=== PATIENT | female | born 1960 | race Caucasian/White ===

== ENCOUNTER 2019-03-20 14:02 | Emergency (ER) | payer BC, MEDICARE ==
--- NOTE | 2019-03-20 14:17 | Emergency Department Record ---
History of Present Illness - General Chief Complaint: Chest Pain Stated Complaint: CHEST PAIN Time Seen by Provider: 03/20/19 14:13 Source: Patient, Family Mode of Arrival: Ambulatory Limitations: No limitations - History of Present Illness Initial Comments: The patient is here due to a 4 month hx of intermittent chest pains. She states the pain is an aching sharp intermittent pain that occurs with any movement, bending twisting and coughing. She has had mild HATTIE at times but no nausea or sweating. The patient has been to the ER multiple times for this over the last 4 months to [facility] but she states they keep sending her home with no diagnosis. She has no hx of fever, chills, MOON, CP with exertion or any Hx of coronary artery dz. The patient does state she has a hx of a racing heart and takes Diltiazam for that. She also is complaining of a worsening of her chronic migraine DIALLO and states she usually receives Dilaudid for that. The patient also has a hx of chronic back pain and has had multiple back surgeries along with spinal stimulators placed. MD Complaint: Chest pain Onset/Timin -: Month(s) - Related Data Home Medications Medication Instructions Recorded Confirmed Last Taken Clonazepam 0.25 mg PO QHS 03/20/19 03/20/19 03/19/19 Diltiazem HCl [Cardizem] 30 mg PO Q8H 03/20/19 03/20/19 03/20/19 Gabapentin [Neurontin] 600 mg PO TID 03/20/19 03/20/19 03/20/19 Promethazine HCl [Phenergan] 25 mg PO ASDIR 03/20/19 03/20/19 Unknown Trazodone HCl 100 mg PO QHS 03/20/19 03/20/19 03/19/19 Allergies Allergy/AdvReac Type Severity Reaction Status Date / Time acetaminophen Allergy Unknown ITCHING Verified 03/20/19 14:57 carisoprodol Allergy Unknown ITCHING Verified 03/20/19 14:57 ibuprofen Allergy Unknown ABDOMINAL Verified 03/20/19 14:57 PAIN meperidine Allergy Unknown ITCHING Verified 03/20/19 14:57 naproxen Allergy Unknown ABDOMINAL Verified 03/20/19 14:57 PAIN prochlorperazine Allergy Unknown ITCHING Verified 03/20/19 14:57 propoxyphene Allergy Unknown ABDOMINAL Verified 03/20/19 14:57 PAIN tramadol Allergy Unknown ABDOMINAL Verified 03/20/19 14:57 PAIN zolpidem Allergy Unknown ITCHING Verified 03/20/19 14:57 Review of Systems Constitutional: Denies: Chills, Fever Eyes: Denies: Eye discharge ENT: Denies: Congestion Respiratory: Denies: Cough, Dyspnea Cardiovascular: Reports: Chest pain. Denies: Arrhythmia, Dyspnea on exertion Endocrine: Reports: Fatigue Gastrointestinal: Denies: Nausea Genitourinary: Denies: Dysuria Musculoskeletal: Reports: Back pain (Chronic.). Denies: Arthralgia Skin: Denies: Bruising Past Medical History - SOCIAL HISTORY Smoking Status: Current every day smoker Alcohol Use: None - RESPIRATORY Hx Respiratory Disorders: No - CARDIOVASCULAR Hx Cardio Disorders: Yes Hx Palpitations: Yes - NEURO Hx Neuro Disorders: Yes Hx Headaches: Yes Hx of Migraines: Yes - MUSCULOSKELETAL Hx Musculoskeletal Disorders: Yes Hx Back Injury: Yes (Chronic back pain.) Physical Exam - General General Appearance: Alert, Oriented x3, Cooperative, No acute distress - Head Head exam: Atraumatic, Normocephalic, Normal inspection - Eye Eye exam: Normal appearance, PERRL - ENT Throat exam: Normal inspection. negative: Tonsillar erythema, Tonsillar exudate - Neck Neck exam: Normal inspection, Full ROM. negative: Meningismus, Tenderness - Respiratory Respiratory exam: Normal lung sounds bilaterally, Chest wall tenderness (the CP is 100% reproducible to palpation over the anterior chest wall.). negative: Respiratory distress - Cardiovascular Cardiovascular Exam: Regular rate, Normal rhythm, Normal heart sounds. negative: Diastolic murmur, Systolic murmur - GI/Abdominal GI/Abdominal exam: Soft, Normal bowel sounds. negative: Tenderness - Extremities Extremities exam: Normal inspection, Full ROM, Normal capillary refill. negative: Tenderness - Neurological Neurological exam: Alert, Altered, Normal gait, Oriented X3. negative: Abnormal gait, Motor sensory deficit - Psychiatric Psychiatric exam: negative: Depressed - Skin Skin exam: negative: Rash Course - Reevaluation(s) Reevaluation #1: The patient is doing better with much less CP and DIALLO. She is mildly sleepy at this time due to taking extra [place] and Neurontin which she did on her own and without our direction. Her CP is still 100% reproducible to palpation. We will check a 2nd Trop and discharge if neg due to her Heart Score being < 3. 03/20/19 16:01 Reevaluation #2: The patient is doing better at this time. She states she is pain free. Her blood pressure is running a little low but she states that is normal for her. The patient has never been here to [facility] so we have no old records to compare. Her chest pain has resolved and she is up ambulating normally with no ataxia. The patient is still a little sleepy from her oral medicines but is answering all questions appropriately. Again her HEART Score is 2 and her initial and 3 hour Trop are neg. That along with the patient's pain being 100% reproducible makes me believe the pain is very unlikely to be cardiac in origin. I also did instruct the patient to see her PCP due to her mild anemia. 03/20/19 17:33 Medical Decision Making - Data Complexity MDM Data: Labs Ordered and/or Reviewed, X-Ray Ordered and/or Reviewed, EKG Ordered and/or Reviewed - Lab Data Result diagrams: 03/20/19 14:15 03/20/19 14:15 - EKG Data -: EKG Interpreted by Me EKG: No Acute Changes, Normal EKG - Radiology Data Radiology results: Report reviewed (CXR: Neg for acute changes.) Disposition Disposition: Discharge Clinical Impression: Chest wall pain Disposition: Home, Self-Care Condition: (2) Stable Instructions: Chest Wall Pain (ED) Additional Instructions: Please take your home medicines as normally directed and please see your family doctor tomorrow for recheck and to obtain a Cardiology referral if needed. Return to the ER for any worsening symptoms. Forms: Patient Portal Access Time of Disposition: 17:37 Quality - Quality Measures Quality Measures: N/A - Blood Pressure Screening View Details: Yes Does Patient Have Any of the Following: No Blood Pressure Classification: Normal BP Reading Systolic Measurement: 93 Diastolic Measurement: 56 Screening for High Blood Pressure: < Normal BP, F/U Not Required > [G8783]
[2019-03-20] MEDS ORDERED: METOCLOPRAMIDE HCL 10 MG/2 ML VIAL IVP ONE (14:34)
[2019-03-20] MEDS ORDERED: DIPHENHYDRAMINE HCL 50 MG/ML VIAL IVP ONE (14:34)
[2019-03-20 14:40] LABS: ABSOLUTE NEUTROPHIL COUNT 3.34; BASO % 0.6 % (0-6); EOS % 2.9 % (0-6); GRAN % 63.9 % (47-80); HEMATOCRIT 30.8 % (35.0-47.0); HEMOGLOBIN 9.6 gm/dl (11.6-16.0); LYMPH % 25.5 % (16-45); MEAN CELL VOLUME 91.7 fl (81-97); MEAN CORPUSCULAR HGB CONC 31.2 g/dl (32-36); MEAN PLATELET VOLUME 10.2 fl (7.4-10.4); MONO % 7.1 % (0-9); PLATELET COUNT 160 K/uL (130-400); RED BLOOD COUNT 3.36 M/uL (3.80-5.40); RED CELL DISTRIBUTION WIDTH 14.9 % (11.5-14.5); WHITE BLOOD COUNT W/O DIFF 5.2 K/uL (4.2-12.2)
[2019-03-20 14:48] LABS: MEAN CORPUSCULAR HEMOGLOBIN 28.5 pg (27-33)
[2019-03-20 14:52] LABS: BLOOD UREA NITROGEN 22 mg/dL (6-20); EST GLOMERULAR FILTRATION RATE > 60 mL/min
[2019-03-20 14:53] LABS: TOTAL PROTEIN 6.3 g/dL (6.6-8.7)
[2019-03-20 14:55] LABS: GLUCOSE,RANDOM 90 mg/dL (74-109)
[2019-03-20 14:57] LABS: ALB/GLOB RATIO 2.2 (1.1-1.8); ALBUMIN 4.3 g/dL (4.0-5.0); ALT/SGPT 8 U/L (<33); AST/SGOT 15 U/L (10.0-35.0)
[2019-03-20 14:58] LABS: ALKALINE PHOSPHATASE 72 U/L (35-104)
[2019-03-20 17:25] LABS: CKMB 1.2 ng/mL (<3.77)
--- NOTE | 2019-03-21 19:00 | RADIOLOGY REPORT ---
EXAM: CHEST 2 VIEWS HISTORY: DIFFICULTY IN BREATHING. TECHNIQUE: Frontal and lateral views of the chest were performed. FINDINGS: Heart size is normal. The lungs are hyperinflated. No infiltrate or effusion. The osseous structures are normal. IMPRESSION: HYPERINFLATED LUNGS. NO ACUTE PROCESS. JOB NUMBER: [id number] MTDD
== END 2019-03-20 17:44 | disposition home or self-care (01) ==
LOC: ER 14:02
DX: R07.89 Other chest pain (principal); R51 Headache; F17.210 Nicotine dependence, cigarettes, uncomplicated
CPT/HCPCS: 71046; 80053; 82553; 84484; 85025; 93005; 93010; 96374; 96375; 99284; J1200; J2765

== ENCOUNTER 2019-08-19 14:37 | Emergency (ER) | payer BC, MEDICARE ==
--- NOTE | 2019-08-19 15:23 | Emergency Department Record ---
History of Present Illness - General Chief complaint: Extremity Problem Stated complaint: RT LEG GIVING OUT Time Seen by Provider: 08/19/19 14:59 Source: Patient, Family Mode of Arrival: Ambulatory Limitations: No limitations - History of Present Illness Initial comments: The patient is here due to worsening of her chronic back pain. She has had a long hx of similar pain for years. The patient has had spinal stimulators placed but not turned on. Per the patient the R sided stimulator has been a problem chronically and she is scheduled to get it out. Now the pain in the R lower back is worse and intermittently traveling down the R leg. She denies any new leg numbness or weakness but states the R leg has given out today. The patient also has had chronic incontinence and that is no worse. MD Complaint: Other Onset/Timin -: Days(s) Location: Right Severity scale (1-10): 10 Quality: Aching - Related Data Home Medications Medication Instructions Recorded Confirmed Last Taken Hydrocodone/APAP 7.5/325Mg [[place] 1 each PO Q6H 08/19/19 08/19/19 1 Day Ago 7.5MG/325Mg] ~08/18/19 Topiramate [Topamax] 50 mg PO DAILY 08/19/19 08/19/19 1 Day Ago ~08/18/19 Venlafaxine HCl [Effexor Xr] 150 mg PO DAILY 08/19/19 08/19/19 1 Day Ago ~08/18/19 Allergies Allergy/AdvReac Type Severity Reaction Status Date / Time acetaminophen Allergy Unknown ITCHING Verified 03/20/19 14:57 carisoprodol Allergy Unknown ITCHING Verified 03/20/19 14:57 ibuprofen Allergy Unknown ABDOMINAL Verified 03/20/19 14:57 PAIN meperidine Allergy Unknown ITCHING Verified 03/20/19 14:57 naproxen Allergy Unknown ABDOMINAL Verified 03/20/19 14:57 PAIN prochlorperazine Allergy Unknown ITCHING Verified 03/20/19 14:57 propoxyphene Allergy Unknown ABDOMINAL Verified 03/20/19 14:57 PAIN tramadol Allergy Unknown ABDOMINAL Verified 03/20/19 14:57 PAIN zolpidem Allergy Unknown ITCHING Verified 03/20/19 14:57 Travel Screening - Travel/Exposure Within Last 30 Days Have you traveled within the last 30 days?: No - Travel/Exposure Within Last Year Have you traveled outside the [place] in the last year?: No - Additonal Travel Details Have you been exposed to anyone with a communicable illness?: No - Travel Symptoms Symptom Screening: None Review of Systems Constitutional: Denies: Chills, Fever Eyes: Denies: Eye discharge ENT: Denies: Congestion Respiratory: Denies: Cough, Dyspnea Past Medical History - SOCIAL HISTORY Smoking Status: Current every day smoker Alcohol Use: None Drug Use: None - RESPIRATORY Hx Respiratory Disorders: No - CARDIOVASCULAR Hx Cardio Disorders: Yes Hx Palpitations: Yes - NEURO Hx Neuro Disorders: Yes Hx Headaches: Yes Hx of Migraines: Yes - GI Hx GI Disorders: No - Hx Genitourinary Disorders: No - ENDOCRINE Hx Endocrine Disorders: No - MUSCULOSKELETAL Hx Musculoskeletal Disorders: Yes Hx Back Injury: Yes (Chronic back pain.) - PSYCH Hx Psych Problems: No - HEMATOLOGY/ONCOLOGY Hx Hematology/Oncology Disorders: No Family Medical History Any Significant Family History?: Yes Hx Heart Disease: Mother Physical Exam - General General Appearance: Alert, Oriented x3, Cooperative, No acute distress - Head Head exam: Atraumatic, Normocephalic - Eye Eye exam: Normal appearance - ENT Throat exam: Normal inspection. negative: Tonsillar erythema, Tonsillar exudate - Neck Neck exam: Normal inspection, Full ROM. negative: Tenderness - Respiratory Respiratory exam: Normal lung sounds bilaterally. negative: Respiratory distress - Cardiovascular Cardiovascular Exam: Regular rate, Normal rhythm, Normal heart sounds - GI/Abdominal GI/Abdominal exam: Soft, Normal bowel sounds. negative: Tenderness - Extremities Extremities exam: Normal inspection, Normal capillary refill, Other (Positive SLR bilaterally to 70 degrees.). negative: Tenderness - Back Back exam: Reports: Other (There is slight swelling over the R spinal stimulator over the R SI joint. ). Denies: Normal inspection, Vertebral tenderness - Neurological Neurological exam: Alert, Motor sensory deficit, Normal gait, Oriented X3, Reflexes normal (The patella and achilles reflexes are 2+ and equal bilaterally. ). negative: Abnormal gait, Altered Course Vital Signs 08/19/19 14:50 Temperature 98.1 F Pulse Rate 84 Respiratory 16 Rate Blood Pressure 111/62 Pulse Ox 99 - Reevaluation(s) Reevaluation #1: I did politely explain to the patient that due to her chronic pain issue that I would be glad to give her non-narcotic pain medicines. I also did recommend a post void residual check to assess spinal nerve integrity. The patient became upset due to not receiving any narcotic pain medicines and walked out of the ED with no limping or leg weakness. 08/19/19 15:22 Disposition Disposition: Discharge Clinical Impression: Chronic back pain Qualifiers: Back pain laterality: unspecified Sciatica presence: unspecified whether sciatica present Disposition: Against Medical Advice Time of Disposition: 15:23 Quality - Quality Measures Quality Measures: N/A - Blood Pressure Screening View Details: Yes Does Patient Have Any of the Following: No Blood Pressure Classification: Normal BP Reading Systolic Measurement: 111 Diastolic Measurement: 62 Screening for High Blood Pressure: < Normal BP, F/U Not Required > [G8783]
== END 2019-08-19 15:20 | disposition left against medical advice (07) ==
LOC: ER 14:37
DX: M54.5 Low back pain (principal); G89.29 Other chronic pain; R29.898 Other symptoms and signs involving the musculoskeletal system; F17.210 Nicotine dependence, cigarettes, uncomplicated
CPT/HCPCS: 99281